=== PATIENT | male | born 1980 | race Caucasian/White ===

== ENCOUNTER 2021-11-16 14:21 | Emergency (ER) | payer OTHER, BC ==
[2021-11-16] MEDS ORDERED: Cephalexin 500 MG Cap PO ONE (14:22)
[2021-11-16] MEDS ORDERED: Diphtheria,Pertussis(Acell),Tetanus Vaccine 0.5 ML Syringe IM ONE (14:27)
== END 2021-11-16 16:25 | disposition home or self-care (01) ==
LOC: FB.ED 14:21
DX: S81.852A Open bite, left lower leg, initial encounter (principal); S80.811A Abrasion, right lower leg, initial encounter; Z23 Encounter for immunization; W54.0XXA Bitten by dog, initial encounter
CPT/HCPCS: 12002; 90471; 90715; 99283; 99283-25; A9270-GY